=== PATIENT | male | born 1980 | race Caucasian/White ===

== ENCOUNTER 2017-11-08 17:31 | Emergency (ER) | payer OTHER ==
[~2017-11-08] VITALS: Ht 149.9 cm; Wt 70.3 kg
[~2017-11-08 17:31] MED LIST: ACETAMINOPHEN-1 EAC1 PO; AMOXICILLIN500 M1 PO; AMOXICILLIN875 MG PO; ANTIPYRINE-BENZ10 ML OT; ANTIVERT25 MG PO; CARAFATE 1 GM TA1 G1 GT; CELEBREX 200 M200 M1 PO; CEPHALEXIN 500500 M3 PO; HYDROCODONE-AP1 EAC6 PO; IBUPROFEN 600600 M1 PO; KEFLEX500 MG PO; NAPROSYN500 MG PO; OMEPRAZOLE; ONDANSETRON HCL4 M2 PO; OXYCODONE HCL 55 MG PO; PEPCID20 MG PO; PHENERGAN 25 MG25 M1 PO; PREDNISONE50 MG PO; PRILOSEC 20 MG20 MG; PRILOSEC 20 MG20 MG PO; PRILOSEC20 MG PO; RANITIDINE HCL300 M1; TAMIFLU PO; TORADOL 10 MG T10 MG PO; ULTRAM 50MG TAB50 MG PO; VENTOLIN17 GM INH; ZANTAC 150MG T150 M1 PO; ZANTAC 150MG T150 MG PO; ZOFRAN ODT4 MG PO; ZPAK PO
[2017-11-08] MEDS ORDERED: CLEOCIN HCL300 MG PO (18:16)
[2017-11-08 18:33] VITALS: BP 151/91
== END 2017-11-08 18:34 | disposition home or self-care (01) ==
LOC: M.ERS 17:31
DX: K13.0 Diseases of lips (principal); K21.9 Gastro-esophageal reflux disease without esophagitis; G43.909 Migraine, unspecified, not intractable, without status migrainosus; F17.210 Nicotine dependence, cigarettes, uncomplicated; Z86.19 Personal history of other infectious and parasitic diseases; Z90.49 Acquired absence of other specified parts of digestive tract

== ENCOUNTER 2018-08-27 04:41 | Emergency (ER) | payer OTHER ==
[~2018-08-27] VITALS: Ht 149.9 cm; Wt 68.0 kg
[~2018-08-27 04:41] MED LIST changes: +CLEOCIN HCL300 MG PO
[2018-08-27 04:46] VITALS: BP 148/102
== END 2018-08-27 05:08 | disposition home or self-care (01) ==
LOC: M.ERS 04:41
DX: H57.89 Other specified disorders of eye and adnexa (principal); K21.9 Gastro-esophageal reflux disease without esophagitis; G43.909 Migraine, unspecified, not intractable, without status migrainosus; F17.210 Nicotine dependence, cigarettes, uncomplicated; Z86.19 Personal history of other infectious and parasitic diseases; Z90.49 Acquired absence of other specified parts of digestive tract

== ENCOUNTER 2019-02-24 14:21 | Emergency (ER) | payer OTHER ==
[~2019-02-24] VITALS: Ht 149.9 cm; Wt 70.3 kg
[2019-02-24] MEDS ORDERED: OMEPRAZOLE 20 M20 M1 PO (14:29)
[2019-02-24 15:19] LABS: ABSOLUTE BASOPHILS 0.1 thou/uL (0.0-0.2); ABSOLUTE EOSINOPHILS 0.2 thou/uL (0.0-0.7); ABSOLUTE LYMPHOCYTES 2.2 thou/uL (0.8-5.3); ABSOLUTE MONOCYTES 0.6 thou/uL (0.0-1.2); BASOPHILS 0.6 %; EOSINOPHILS 1.7 %; HEMATOCRIT 42.9 % (42.0-52.0); HEMOGLOBIN 14.7 gm/dL (14.0-18.0); MCH 30.1 pg (26.0-34.0); MCHC 34.2 g/dL (28.0-37.0); MCV 87.9 fL (80.0-100.0); MPV 8.1 fl. (7.2-11.1); NUCLEATED RBCS 0 /100WBC; PLATELET COUNT* 280 thou/uL (150-400); POLYS 74.7 %; RBC 4.88 mil/uL (4.50-6.00); RDW-CV 13.2 % (10.5-14.5)
[2019-02-24 15:32] LABS: ALBUMIN 3.7 g/dL (3.4-5.0); CALCIUM 8.6 mg/dL (8.5-10.1); CREATININE 0.9 mg/dL (0.6-1.3); POTASSIUM 3.8 mmol/L (3.5-5.1); TOTAL BILIRUBIN 0.2 mg/dL (<0.1-1.0); TOTAL PROTEIN 7.2 g/dL (6.4-8.2)
[2019-02-24] MEDS ORDERED: IBUPROFEN 800800 M1 PO (16:35)
[2019-02-24 16:43] VITALS: BP 137/89
--- NOTE | 2019-02-25 15:13 | EKG ---
[place] [address] ELECTROCARDIOGRAM REPORT Name: VINCENT WILLIAMSON JR [id number] Admission: 02/24/19 Attend Phys: Discharge: 02/24/19 Date of : 82 Report #: [id number] THIS REPORT FOR: //name// [facility] ED Test Date: 2019-02-24 Test Time: 14:36:06 Pat Name: VINCENT WILLIAMSON Department: Room: Gender: M [employer]her Loader Operator: KATHE : 1980 Requested By: Shiva Dow Order Number: [id number] MD: Terrance Cooley Measurements Intervals [place] Rate: 97 P: 47 CT: 151 QRS: 39 QRSD: 91 T: 14 QT: 349 QTc: 444 Interpretive Statements Sinus rhythm Compared to ECG 01/05/2017 11:24:16 rate has increased Electronically Signed On 02-25-2019 15:13:25 FIRER KILN by Terrance Cooley [email or web address] <ELECTRONICALLY SIGNED> By: Terrance Cooley MD, [facility] 02/25/19 1513 1436 1436 Terrance Cooley MD, FACC /EPI
== END 2019-02-24 16:43 | disposition home or self-care (01) ==
LOC: M.ERS 14:21
PROVIDERS: Emergency Medicine Emergency Medical Services
DX: S46.092A Other injury of muscle(s) and tendon(s) of the rotator cuff of left shoulder, initial encounter (principal); R11.2 Nausea with vomiting, unspecified; R10.12 Left upper quadrant pain; R10.84 Generalized abdominal pain; G43.909 Migraine, unspecified, not intractable, without status migrainosus; K21.9 Gastro-esophageal reflux disease without esophagitis; F17.210 Nicotine dependence, cigarettes, uncomplicated; Z88.5 Allergy status to narcotic agent; Z86.19 Personal history of other infectious and parasitic diseases; Z90.49 Acquired absence of other specified parts of digestive tract; X58.XXXA Exposure to other specified factors, initial encounter; Y93.89 Activity, other specified; Y92.89 Other specified places as the place of occurrence of the external cause; Y99.8 Other external cause status

== ENCOUNTER 2019-11-09 12:11 | Emergency (ER) | payer OTHER ==
[~2019-11-09] VITALS: Ht 149.9 cm; Wt 68.0 kg
[~2019-11-09 12:11] MED LIST changes: +IBUPROFEN 800800 M1 PO; +OMEPRAZOLE 20 M20 M1 PO
[2019-11-09] MEDS ORDERED: CIPROFLOXIN HC2.5 M1 OPHTHALMIC (12:44)
[2019-11-09 13:21] VITALS: BP 130/98
== END 2019-11-09 13:21 | disposition home or self-care (01) ==
LOC: M.ERS 12:11
DX: T15.82XA Foreign body in other and multiple parts of external eye, left eye, initial encounter (principal); S05.02XA Injury of conjunctiva and corneal abrasion without foreign body, left eye, initial encounter; G43.909 Migraine, unspecified, not intractable, without status migrainosus; K21.9 Gastro-esophageal reflux disease without esophagitis; F17.210 Nicotine dependence, cigarettes, uncomplicated; Z86.19 Personal history of other infectious and parasitic diseases; Z90.49 Acquired absence of other specified parts of digestive tract; X58.XXXA Exposure to other specified factors, initial encounter; Y93.89 Activity, other specified; Y92.89 Other specified places as the place of occurrence of the external cause; Y99.8 Other external cause status

== ENCOUNTER 2020-08-28 23:34 | Emergency (ER) | payer OTHER ==
[~2020-08-28] VITALS: Ht 149.9 cm; Wt 72.6 kg
[~2020-08-28 23:34] MED LIST changes: +CIPROFLOXIN HC2.5 M1 OPHTHALMIC
[2020-08-29] MEDS ORDERED: TRAMADOL 50 MG50 MG PO (00:33)
[2020-08-29 00:58] VITALS: BP 144/79
== END 2020-08-29 00:58 | disposition home or self-care (01) ==
LOC: M.ERS 23:34
DX: M79.674 Pain in right toe(s) (principal); K21.9 Gastro-esophageal reflux disease without esophagitis; F17.210 Nicotine dependence, cigarettes, uncomplicated; Z88.6 Allergy status to analgesic agent; G43.909 Migraine, unspecified, not intractable, without status migrainosus; Z86.19 Personal history of other infectious and parasitic diseases; Z90.49 Acquired absence of other specified parts of digestive tract